=== PATIENT | male | born 1940 | race Caucasian/White ===

== ENCOUNTER 2019-06-19 16:44 | Inpatient (IN) | payer MEDICARE, SELFPAY | END 2019-06-25 13:25 | disposition home health service (06) | DRG 699 | PROVIDERS: Admitting Provider Family Medicine; Emergency Provider Emergency Medicine; PCP Family Medicine; Visit Provider Internal Medicine | DX: T83.511A Infection and inflammatory reaction due to indwelling urethral catheter, initial encounter (principal); N30.00 Acute cystitis without hematuria; E11.51 Type 2 diabetes mellitus with diabetic peripheral angiopathy without gangrene; I11.0 Hypertensive heart disease with heart failure; I25.10 Atherosclerotic heart disease of native coronary artery without angina pectoris; I50.9 Heart failure, unspecified; Z95.3 Presence of xenogenic heart valve; I25.2 Old myocardial infarction; E78.5 Hyperlipidemia, unspecified; Z98.49 Cataract extraction status, unspecified eye; Z79.82 Long term (current) use of aspirin; D63.8 Anemia in other chronic diseases classified elsewhere; K21.9 Gastro-esophageal reflux disease without esophagitis; N40.0 Benign prostatic hyperplasia without lower urinary tract symptoms; F41.9 Anxiety disorder, unspecified; Z89.611 Acquired absence of right leg above knee; Z95.1 Presence of aortocoronary bypass graft; Z79.02 Long term (current) use of antithrombotics/antiplatelets; Z95.0 Presence of cardiac pacemaker; I49.1 Atrial premature depolarization | CPT/HCPCS: 36415; 36600; 71046; 74177; 80048; 80053; 81001; 82805; 83605; 83615; 83735; 84439; 84443; 84480; 85025; 85046; 85610; 86141; 87040; 87077; 87081; 87086; 87088; 87186; 93005; 93306; 96361; 96365; 96367; 96375; 97161; 97165; 99285; A9270; J0131; J0692; J0696; J1650; J1815; J2405; J3370; J7030; J7060; Q9967 ==